=== PATIENT | female | born 1955 | race Caucasian/White ===

== ENCOUNTER 2016-04-02 16:57 | Emergency (ER) | payer OTHER ==
[~2016-04-02] VITALS: Ht 165.1 cm; Wt 68.0 kg
[2016-04-02] MEDS ORDERED: SERTRALINE HCL50 MG PO (17:57)
[2016-04-02] MEDS ORDERED: TRAZODONE HCL50 M1 PO (17:57)
--- NOTE | 2016-04-02 18:18 | ED MVC/FALL/TRAUMA COMPLAINT ---
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 PT DENIES LOC, HIT HER FACE ON GROUND, BLEEDING CONTROLLED. PT UNSURE OF LAST TETANUS VACCINATION. DENIES BLOOD THINNERS. Triage Nurses Notes Reviewed? yes Onset: Abrupt Duration: minute(s):, constant, continues in ED Timing: recent history Severity: moderate, severe No Modifying Factors: none HPI: 60-year-old female comes into the emergency room for further evaluation after slipping and falling outside in the face planting on the ground. No loss of consciousness. Patient reports that her right front tooth broke. She has some bleeding to her upper lip. Denies any headache vomiting neck pain chest pain. Patient has some small cuts underneath her chin. Denies any other associated symptoms. (DEMETRI LIMA) Past History Travel History Traveled to [place] past 21 day No Medical History Any Pertinent Medical History? see below for history Psychiatric: depression, insomnia Surgical History Surgical History: non-contributory Psychosocial History Who do you live with Patient/Self Services at Home None What is your primary language Gibraltarian Tobacco Use: Never used Family History Hx Contributory? No (DEMETRI LIMA) Review of Systems Review of Systems Constitutional: Reports: no symptoms. Eyes: Reports: no symptoms. Ears, Nose, Throat, Mouth: Reports: see HPI. Respiratory: Reports: no symptoms. Cardiovascular: Reports: no symptoms. Gastrointestinal/Abdominal: Reports: no symptoms. Genitourinary: Reports: no symptoms. Musculoskeletal: Reports: no symptoms. Skin: Reports: see HPI. Neurological/Psychological: Reports: see HPI. All Other Systems: Reviewed and Negative (DEMETRI LIMA) Physical Exam Physical Exam General Appearance: alert, awake, smells of alcohol Head: gaping circular laceration to upper lip, small cuts on lower chin, abrasions on nose and cheek, Eyes: Bilateral: normal appearance, PERRL, EOMI. Ears, Nose, Throat, Mouth: hearing grossly normal, moist mucous membrane Neck: normal inspection, supple, full range of motion Respiratory: normal breath sounds, no respiratory distress Cardiovascular: regular rate/rhythm Gastrointestinal: soft Back: normal inspection Extremities: normal range of motion Neurologic/Psych: awake, alert, oriented x 3, normal gait, normal mood/affect Skin: intact, normal color Core Measures ACS in differential dx? No Severe Sepsis Present: No Septic Shock Present: No (DEMETRI LIMA) Progress Differential Diagnosis: abd injury, C/T/L spine injury, ext injury, ICH, pelvis injury, pnemothorax, spinal cord injury Plan of Care: Orders Procedure Date/time Status CT HEAD WO IV CONTRAST 04/[address] MAXILLOFACIAL W/O CON 04/[address] CERV SPINE WO IV CONTRAST 04/02 1719 Active Diagnostic Imaging: Viewed by Me: CT Scan. Discussed w/RAD: CT Scan. Radiology Impression: EXAM TYPE: CAT - CT CERV SPINE WO IV CONTRAST; CT HEAD WO IV CONTRAST; CT MAXILLOFACIAL W/O CON EXAMINATION: CT HEAD WITHOUT CONTRAST CT MAXILLOFACIAL WITHOUT CONTRAST CT CERVICAL SPINE WITHOUT CONTRAST CLINICAL INFORMATION: Fall. Pain. COMPARISON: None. TECHNIQUE: Axial noncontrast images of the head, cervical spine, and maxillofacial region were obtained. Reformatted images were reviewed. DLP: 1610 mGy-cm. FINDINGS: HEAD CT: No intracranial hemorrhage or territorial infarction. No mass effect or midline shift. No extra axial fluid collection. No hydrocephalus. No significant abnormal attenuation within the brain parenchyma. No calvarial fracture. Mastoid air cells are aerated. No subgaleal hematoma. MAXILLOFACIAL CT: No fracture or dislocation. The bony orbits are intact. No evidence of traumatic orbital injury. The paranasal sinuses are aerated. Suspect dental disease involving multiple alveolar teeth. CERVICAL SPINE CT: No fracture or dislocation. No prevertebral soft tissue swelling. There is multilevel degenerative endplate change, most conspicuous from C4 to C7. Mild disc space narrowing at C5-C6 and C6-C7. Grade 1 anterolisthesis of C6 on C7 is chronic in appearance. Multilevel facet arthropathy. Uncovertebral joint spurring and facet arthropathy cause multilevel foraminal narrowing at multiple levels. There is straightening of normal cervical lordosis, which is a nonspecific finding. Incomplete fusion of the posterior C1 arch is developmental. IMPRESSION: 1. No acute intracranial, maxillofacial, or cervical spine pathology. 2. Moderate degenerative changes of the cervical spine as above. DICTATED BY: MICHELET TRENT MD DATE/TIME DICTATED: 04/02/161809 ELECTROPHYSIOLOGY TECHNICIAN:AYLEEN DATE/TIME TRANSCRIBED:04/02/161809 Comments: 04/02/2016 8:22:01 PM Patient denies any alcohol use. Patient is clinically sober. Her sister is driving her home. No evidence of acute trauma. Patient needs follow-up with dentist. Return if any other concerns. (FREIDA SKINNER,DEMETRI) Departure Departure Disposition: HOME OR SELF CARE Condition: Stable Clinical Impression Primary Impression: Facial laceration Secondary Impressions: Dental trauma, Head injury Referrals: JOSE PACHECO,MIGUELINA Richard (PCP/Family) Additional Instructions: Return in 7 days for suture removal. Return if any vomiting, pain anywhere else in the body, or any other concerns worsening symptoms. Follow-up with dentist. Watch for signs of infection such as redness or discharge fever chills. Please go over all results of today's visit with your primary care doctor. Contact your primary care doctor to let them know you were here in the emergency room. There may be nonspecific findings which may not be related to your visit today here in the emergency room but may require further evaluation and chronic monitoring by your primary care doctor. If you had a laceration today the chance of foreign body always remains. You should follow-up with your primary care doctor for recheck in 3-5 days for a wound check. If you had an x-ray done there is a chance that a fracture could have been missed on initial read and you should follow-up with your primary care doctor for repeat x-rays if symptoms persist. If your blood pressure was elevated here in the emergency room please have rechecked by her primary care doctor within the next 48 hours by your primary care doctor. If you were prescribed a narcotic here in the emergency room or any type of controlled substances you're not allowed to drive while taking this medication or operate any type of heavy machinery. Narcotics can make you feel lightheaded dizziness nausea and can cause constipation. You may need to pickling grader a stool softener. Thank you for choosing [facility] emergency room. Please return to the emergency room immediately if you have any other concerns worsening of symptoms. Departure Forms: Customer Survey General Discharge Information (DEMETRI LIMA) PA/MATERIAL HANDLER LOADER Co-Sign Statement Statement: ED Attending supervision documentation- [] I saw and evaluated the patient. I have also reviewed all the pertinent lab results and diagnostic results. I agree with the findings and the plan of care as documented in the PA's/MATERIAL HANDLER LOADER's documentation. [X] I have reviewed the ED Record and agree with the PA's/MATERIAL HANDLER LOADER's documentation. [] Additions or exceptions (if any) to the PAs/MATERIAL HANDLER LOADER's note and plan are summarized below: [] (PATRICIA PACHECO,SABRINA) Procedures Laceration/Wound Repair Laceration/Wound Repair: Wound Location: face Wound's Depth, Shape: irregular (upper lip) Wound Length (cm): 1.5 Wound Explored: irrigated extensively Betadine Prep? Yes Progress: 1% lidocaine with epi, Betadine prep, 4 mL injected, 6. 0 nylon use, 2 sutures placed, patient tolerated procedure well, irrigated with peroxide and Betadine, bacitracin placed, Dermabond used on chin (DEMETRI LIMA)
[2016-04-02 18:31] VITALS: BP 100/61
--- NOTE | 2016-04-02 18:31 | CT SCAN REPORT ---
EXAMINATION: CT HEAD WITHOUT CONTRAST CT MAXILLOFACIAL WITHOUT CONTRAST CT CERVICAL SPINE WITHOUT CONTRAST CLINICAL INFORMATION: Fall. Pain. COMPARISON: None. TECHNIQUE: Axial noncontrast images of the head, cervical spine, and maxillofacial region were obtained. Reformatted images were reviewed. DLP: 1610 mGy-cm. FINDINGS: HEAD CT: No intracranial hemorrhage or territorial infarction. No mass effect or midline shift. No extra axial fluid collection. No hydrocephalus. No significant abnormal attenuation within the brain parenchyma. No calvarial fracture. Mastoid air cells are aerated. No subgaleal hematoma. MAXILLOFACIAL CT: No fracture or dislocation. The bony orbits are intact. No evidence of traumatic orbital injury. The paranasal sinuses are aerated. Suspect dental disease involving multiple alveolar teeth. CERVICAL SPINE CT: No fracture or dislocation. No prevertebral soft tissue swelling. There is multilevel degenerative endplate change, most conspicuous from C4 to C7. Mild disc space narrowing at C5-C6 and C6-C7. Grade 1 anterolisthesis of C6 on C7 is chronic in appearance. Multilevel facet arthropathy. Uncovertebral joint spurring and facet arthropathy cause multilevel foraminal narrowing at multiple levels. There is straightening of normal cervical lordosis, which is a nonspecific finding. Incomplete fusion of the posterior C1 arch is developmental. IMPRESSION: 1. No acute intracranial, maxillofacial, or cervical spine pathology. 2. Moderate degenerative changes of the cervical spine as above.
== END 2016-04-02 19:15 ==
LOC: ERH 16:57
DX: S01.511A Laceration without foreign body of lip, initial encounter (principal); S02.5XXA Fracture of tooth (traumatic), initial encounter for closed fracture; X58.XXXA Exposure to other specified factors, initial encounter
CPT/HCPCS: 90471

== ENCOUNTER 2016-04-09 14:03 | Emergency (ER) | payer OTHER ==
[~2016-04-09] VITALS: Ht 162.6 cm; Wt 68.0 kg
[~2016-04-09 14:03] MED LIST: SERTRALINE HCL50 MG PO; TRAZODONE HCL50 M1 PO
[2016-04-09 14:11] VITALS: BP 113/75
--- NOTE | 2016-04-09 14:11 | ED ANIMAL BITE/WOUND CHECK ---
History of Present Illness General Chief Complaint: Suture Removal/Wound Recheck Stated Complaint: SUTURE REMOVAL Source: patient Exam Limitations: no limitations Vital Signs & Intake/Output Vital Signs & Intake/Output Vital Signs Date Time Temp Pulse Resp B/P Pulse O2 O2 Flow FiO2 Ox Delivery Rate 04/09 1411 96.7 87 16 113/75 97 Room Air Allergies Coded Allergies: NO KNOWN ALLERGIES (02/02/12) Reconcile Medications Sertraline HCl 50 MG TABLET 1 TAB PO DAILY DEPRESSION (Reported) Trazodone HCl 50 MG TABLET 1 TAB PO QPM SLEEP (Reported) Triage Note: 60 Y/0 FEMALE REQUESTING SUTURE REMOVAL FROM UPPER LIP (JUST ABOVE LIP); UNKNOWN NUMBER OF SUTURES PLACED 1 WEEK AGO, MONDAY. PT DENIES COMLAINTS. SCAB OVER AREA. NO S/S INFECTIONS NOTED MD JOHNSON OUT TO TRIAGE Triage Nurses Notes Reviewed? yes HPI: PT PRESENTS FOR SUTURE REMOVAL. SUTURES PLACED 1 WEEK AGO. PT HAS NO COMCPLAINTS , NO FEVERS OR CHILLS, NO PAIN. Past History Travel History Traveled to [place] past 21 day No Medical History Any Pertinent Medical History? see below for history Neurological: NONE EENT: NONE Cardiovascular: NONE Respiratory: NONE Gastrointestinal: NONE Hepatic: NONE Renal: NONE Musculoskeletal: NONE Psychiatric: depression, insomnia Endocrine: NONE Blood Disorders: NONE Cancer(s): NONE INSPECTOR FILTER TIP/Reproductive: NONE Tetanus Vaccine: 04/02/16 Surgical History Surgical History: non-contributory Psychosocial History Who do you live with Patient/Self Services at Home None What is your primary language Lebanese Tobacco Use: Never used ETOH Use: denies use Illicit Drug Use: denies illicit drug use Family History Hx Contributory? No Review of Systems Review of Systems Constitutional: Reports: no symptoms. EENTM: Reports: no symptoms. Respiratory: Reports: no symptoms. Cardiovascular: Reports: no symptoms. Skin: Reports: see HPI. Neurological/Psychological: Reports: no symptoms. Physical Exam Physical Exam General Appearance: well developed/nourished, alert, awake Eyes: Bilateral: PERRL, EOMI. Ears, Nose, Throat: SUTURES READY FOR REMOVAL Neurologic/Psych: no motor/sensory deficits, awake, alert, oriented x 3, normal gait, normal mood/affect Progress Differential Diagnosis: SUTURE REMOVAL Plan of Care: REMOVE SUTURES Departure Departure Disposition: HOME OR SELF CARE Condition: Stable Clinical Impression Primary Impression: Visit for suture removal Referrals: JOSE PACHECO,MIGUELINA Richard (PCP/Family) Additional Instructions: RETURN FOR ANY COCNERNS Departure Forms: Customer Survey General Discharge Information
== END 2016-04-09 14:19 ==
LOC: ERH 14:03
DX: S01.511D Laceration without foreign body of lip, subsequent encounter (principal)
CPT/HCPCS: 99281